=== PATIENT | male | born 1970 | race Caucasian/White ===

== ENCOUNTER 2024-04-23 13:45 | Emergency (ER) | payer BC ==
[~2024-04-23] VITALS: Ht 188 cm; Wt 115.6 kg
[2024-04-23 14:09] VITALS: BP 137/94; PULSE 104; TEMP 97.4; O2SAT 94
[2024-04-23] MEDS: LIDOcaine 1% W/epiNEPHrine 1:100,000 20ml vial SQ ONE (14:32)
[2024-04-23] MEDS: TETanus/Pertussis (Acell)/Diphther VAC/PF (Tdap-Adult) 0.5ml syringe IMVAC ONE (15:30)
[2024-04-23] MEDS ORDERED: CEPH-585 PO (15:32)
[2024-04-23 15:38] VITALS: RESP 18
== END 2024-04-23 15:39 | disposition home or self-care (01) ==
LOC: ER 13:45
DX: S51.812A Laceration without foreign body of left forearm, initial encounter (principal); Z88.5 Allergy status to narcotic agent; X58.XXXA Exposure to other specified factors, initial encounter; Y93.89 Activity, other specified; Y92.89 Other specified places as the place of occurrence of the external cause; Y99.8 Other external cause status
CPT/HCPCS: 12001; 90471; 90715; 99283; A6449